=== PATIENT | male | born 1960 | race Caucasian/White ===

== ENCOUNTER 2017-04-08 11:05 | Day surgery (SDC) | payer BC ==
[~2017-04-08 11:05] MED LIST: ALBU90OI INH; AMOX1XR; ATOR10; AZIT250 PO; HYDCHLSU; IBUP800; OMEP20ER; OXYACE5T PO
== END 2017-04-08 22:52 | disposition home or self-care (01) ==
LOC: ORSCMMR 11:05 → ORD 12:00 → ORSCMMR 12:00
PROVIDERS: Internal Medicine Gastroenterology
PROC: 0DB68ZX Excision of Stomach, Via Natural or Artificial Opening Endoscopic, Diagnostic (ICD-10-PCS; principal; 2017-04-08 12:00)
DX: R10.12 Left upper quadrant pain (principal); K31.7 Polyp of stomach and duodenum; K20.9 Esophagitis, unspecified; K29.70 Gastritis, unspecified, without bleeding; R10.13 Epigastric pain; K21.9 Gastro-esophageal reflux disease without esophagitis; R19.4 Change in bowel habit; R11.0 Nausea; Z79.899 Other long term (current) drug therapy
CPT/HCPCS: 74019; 88305; 88342; J2250; J7120

== ENCOUNTER 2018-05-21 07:23 | Day surgery (SDC) | payer BC ==
[~2018-05-21] VITALS: Ht 175.3 cm; Wt 84.5 kg
[~2018-05-21 07:23] MED LIST changes: +ATOR10 PO; +FAMO20 PO; +LANS30EC PO
--- NOTE | 2018-05-21 09:12 | NUR ---
05/21/18 0912 Rosina Ryan INJECTED INTO PORT PER DR TOLENTINO
--- NOTE | 2018-05-21 09:45 | NUR ---
05/21/18 0945 Annette Rivas IV AT 0945. 300ML LEFT IN THE BAG. WNL
== END 2018-05-21 09:51 | disposition home or self-care (01) ==
LOC: ORSCSDS 07:23
PROVIDERS: Internal Medicine Gastroenterology
PROC: 0DBN8ZX Excision of Sigmoid Colon, Via Natural or Artificial Opening Endoscopic, Diagnostic (ICD-10-PCS; principal; 2018-05-21 08:45)
DX: R10.12 Left upper quadrant pain (principal); D12.5 Benign neoplasm of sigmoid colon; R19.4 Change in bowel habit; K57.30 Diverticulosis of large intestine without perforation or abscess without bleeding; Z79.899 Other long term (current) drug therapy
CPT/HCPCS: 88305; J7120